=== PATIENT | female | born 1955 | race Caucasian/White ===

== ENCOUNTER → 2024-04-19 17:45 | Outpatient (REF) | payer MEDICARE, OTHER, SELFPAY | LOC: RAD 17:45 | PROVIDERS: ATTENDING PHYSICIAN Nurse Practitioner Family; FAMILY PHYSICIAN Family Medicine | DX: M79.675 Pain in left toe(s) (principal); M79.672 Pain in left foot | CPT/HCPCS: 73630; 73660 ==

== ENCOUNTER 2024-10-30 11:44 | Inpatient (IN) | payer MEDICARE, OTHER, SELFPAY ==
[2024-10-30] VITALS (13 sets, daily range): BP systolic 79–117; BP diastolic 49–81; BMI 18.0
--- NOTE | 2024-10-30 10:25 | ED.GENMED ---
History of Present Illness
General
Chief Complaint: Chest Pain
Time Seen by Provider: 10/30/24 10:25
History of Present Illness
History of Present Illness:
TIME OF INITIAL ENCOUNTER: 10:20 AM
HPI: The patient presents due to chest pressure that started last night. The symptoms have been constant since last night. She denies any history of coronary artery disease. She has never been to a court commissioner. She said that she started feeling
sick to her stomach. She took some Pepto-Bismol this morning. Former smoker.
EXAM:
GENERAL: Well appearing in no distress
HEENT: Moist oral mucosa
CARDIOVASCULAR: No murmurs, normal heart rate, regular rhythm, No chest wall tenderness
PULMONARY: No respiratory distress, breath sounds are clear and equal
ABDOMEN: Soft with no peritoneal signs, no tenderness
NEUROLOGIC: Excellent strength all extremities, no coordination deficits
PSYCHIATRIC: Appropriate mental status, normal insight and judgement
EXTREMITIES: Nontender, no edema, moves all extremities equally
SKIN: No rash, no lesions
NUMBER AND COMPLEXITY OF PROBLEMS ADDRESSED AT THE ENCOUNTER
� Chronic conditions affecting care: Asthma, former smoker, diverticular disease
� Acute Exacerbation and/or Progression of Chronic Illness: This is an acute problem
� Differential Diagnosis includes: STEMI, ACS, reactive airway disease unlikely
AMOUNT AND/OR COMPLEXITY OF DATA TO BE REVIEWED AND ANALYZED
� I performed an independent evaluation of and my interpretation is:
EKG: Initial EKG shows a sinus rhythm but inferior ST elevation with associated Q wave.
CT:
X-rays:
Laboratory Studies: White count 12.0, hemoglobin normal, chemistries are unremarkable, however the troponin is 4.08
Other:
� Review of other/old records: I reviewed records, the patient went to the OR in 2021 related to cholelithiasis
� Clinical information was obtained by an independent historian: None needed
� Prescriptions/Medications Considered but not given:
� Further testing considered but not performed:
RISK OF COMPLICATIONS AND/OR MORBIDITY OR MORTALITY OF PATIENT MANAGEMENT
� Social determinants of health affecting care: Lives at home
� Discussion with other providers: I spoke to Dr. Chatman immediately after my evaluation of the EKG. STEMI alert had been called at around 10:[address] Chatman arrived shortly thereafter.
� Escalation of care including admission/observation vs risk of discharge considered:
ANY OTHER UPDATES:
After initial evaluation by EKG that showed STEMI inferiorly, she was seen immediately upon arrival in the room and Dr. Chatman took to the Attraction Attendant. Aspirin/Brilinta started. She was inconsistent if she was still having chest discomfort or not.
Past History
Past History
ED Past Medical History: None
ED Past Surgical History: None
Phy Exam
Physical Exam
Physical Exam:
See HPI
Scores
Heart Score for Chest Pain Patients
STEMI patient?: Yes
Sepsis
Sepsis Screening
Sepsis Assessment: Sepsis Ruled Out
Sepsis Screen
Sepsis Screen: Sepsis Ruled Out
Date: 10/30/24
Time: 12:45
Course
Orders/Labs/Results
Orders:
Orders
10/30/24 Lunch
Cholesterol Lowering
At Your Request: Full Participation
Does patient need a safe tray?: No
Cholesterol Lowering: Sodium, 2 Gram
10/30/24 10:13
Electrocardiogram (*1) Urgent
Reason for Study: Chest Pain
EKG- Treatment ONCE
10/30/24 10:29
Complete Blood Count/With Diff Urgent
Comprehensive Metabolic Panel Urgent
Magnesium Urgent
NT-proBNP Urgent
Troponin I Urgent
10/30/24 10:38
Ticagrelor [Brilinta] 180 mg .ROUTE .STK-MED ONE
10/30/24 10:39
Aspirin Chewable [Low Strength Aspirin] 324 mg .ROUTE .STK-MED ONE
Heparin 5,000 units .ROUTE .STK-MED ONE
10/30/24 11:05
Ondansetron Injectable [Zofran] 4 mg .ROUTE .STK-MED ONE
10/30/24 11:09
Admit Patient As Directed
Co-Sign Provider:
Level of Care: Inpatient admission
Assign to:: IVU
Physician / Group: michael/lurdes
Diagnosis: Inferior STEMI
Reason for Hospitalization: Acute inf stemi, s/p rca pci
Expected length of stay greater than two midnights?: Yes
ELOS- Estimated Length of Stay in days: 2
I certify the patient meets the requirements for IP care: Yes
Electrocardiogram (*1) Urgent
Reason for Study: Other
Other Reason for Exam: s/p intervention
Comment: dca
Code Status As Directed
Resuscitation Status: Full Code
CARDIAC REHAB CONSULT Routine
Co-Sign Provider:
Cardiac Rehab & Exercise Evaluation Referral
Type of Cardiac Rehab Referral: Outpatient
Diagnosis: STEMI
Date of Diagnosis/Surgery: 10/30/24
Referring Provider: Socorro Chatman
[facility] Intensive Cardiac Rehab Exercise Prescription
The above named person is capable of participating in an intensive cardiac rehab exercise therapy program
under the guidance of the [facility] cardiac rehab staff, outpatient registered dieticians and
supervision of a physician.
ICR Program Objectives:
Provide supervised exercise, cooking classes, nutritional counseling and healthy mind-set education to
improve the function/symptom free work capacity to an optimal level as well as control risk factors to
prevent the progression of heart disease. During the supervised exercise therapy session some or all of
the following may be included in the cardiac rehab session: ECG telemetry, BP, heart rate, rate of
perceived exertion, symptoms/tolerance, cholesterol testing and education. Exercise modalities may
include: treadmill, upright or recumbent bike, spin bike, rowing machine, elliptical, recumbent
elliptical, arm-bike machine, recumbent stepper and free weights.
Intensity:
All CR staff will use ACSM guidelines: Most patients will exercise in the following range: Heart Rate
Maxie range of 40% to 80% & Oxygen Uptake reserve range 40-80% (VO2R). Peak heart rate and VO2 are
derived from the cardiac rehab submaximal graded exercise test at RPE of 13/14 out of 20. Initial
intensity range: RPE 11 to 14/20 and may expand to 11 to 16/20.
Duration & Frequency:
If appropriate the patient will be progressed up to 40 minutes of exercise therapy. Patients will be
instructed to come three times a week in cardiac rehab and at a home/other gym to achieve optimal
physical activity/exercies i.e. 4000-10,000 steps per day.
Education:
The patient will receive one-on-one education during their orientation, initial exercise evaluation, ITP
reassessments and discharge session. Each exercise session will also include an education class (30-40
minutes).
Activity As Directed
Activity Level: Out of Bed- Chair
Comment: bed/chair rest for 2 hours then out of bed ad rakesh
Attraction Attendant Procedure As Directed
Cardiac Cath Procedure: percutaneous coronary intervention
Intake/ Output As Directed
Frequency: Per unit guidelines
Notify MD As Directed
Notify physician if: immediately for chest pain or bleeding from access site(s)
Radial Artery Hemostasis Method As Directed
Instructions:: 3 mL out at 2 hour posts placement of band
3 mL out at 2 1/2 hours post placement of band
3 mL out at 3 hours post placement of band
Off at 3 1/2 hours post placement of band
If any oozing or hemotoma occurs:: re-inflate band and call provider
Site Checks As Directed
Check access site for bleeding/hematoma: Yes
Comment: on arrival, Q15min x4, Q30min x2, Q1 hr x2, Q2 hr x2, Q4 hr or per
protocol
Vascular Checks As Directed
Location: distal to access site - pulse check
Frequency: Other
Comment: on arrival, Q15min x4, Q30min x2, Q1 hr x2, Q2 hr x2, Q4 hr or per protocol
Vital Signs As Directed
Frequency: Other
Additional Instructions:: on arrival, Q15min x4, Q30min x2, Q1 hr x2, Q2 hr x2, then Q4 hr or per unit
protocol
PRN Pain Medication Management As Directed
May give lesser potent ordered pain med per pt: Yes
preference::
Protocol:: Medication orders for pain may be administered in a
manner that supports deferring to patient preference
when the pt is:
- Requesting an ordered lesser potent pain medication.
Least to most potent pain medications are defined
as: acetaminophen < NSAID < tramadol < opioids
(morphine, oxycodone, hydromorphone).
- Requesting a lesser dose of the same medication IF
ORDERED.
- Requesting a less intrusive route of administration
if both routes are prescribed by the provider (PO <
IV).
10/30/24 11:10
DX Deep Vein Thrombosis Video Routine
10/30/24 11:20
Acetaminophen [Tylenol] 650 mg PO Q4HPRN PRN
10/30/24 11:25
Phenylephrine HCl/0.9% NaCl [Erick-Synephrine] 1,000 mcg .ROUTE .STK-MED ONE
10/30/24 11:30
0.9% Sodium Chloride 1000 ml [Nss] 1,000 ml IV PER PROTOCOL
Infusion rate in mL/kg/hr:: 1.5
Infusion rate in mL/hr:: 69
Duration of infusion (hours):: 5
10/30/24 16:00
Troponin I Q6H
10/30/24 18:00
Atorvastatin [Lipitor] 80 mg PO QPM
10/30/24 20:00
Ticagrelor [Brilinta] 90 mg PO BID
10/30/24 22:00
Troponin I Q6H
10/31/24 04:00
Troponin I Q6H
10/31/24 06:00
Electrocardiogram (*1) IN AM
Reason for Study: Other
Other Reason for Exam: s/p intervention
Comment: dca
Basic Metabolic Panel IN AM
Cardiovascular Evaluation IN AM
Complete Blood Count/No Diff IN AM
10/31/24 08:00
Aspirin Chewable [Low Strength Aspirin] 81 mg PO DAILY
Pantoprazole [Protonix] 40 mg PO DAILY
10/31/24 18:00
Enoxaparin Sodium [Lovenox] 30 mg SC QPM
11/01/24 06:00
Basic Metabolic Panel IN AM
Complete Blood Count/No Diff IN AM
Abnormal Lab Results
10/30/24 10/30/24 10/30/24
10:29 10:53 11:00
WBC 12.0 H 10^3/uL
(4.8-10.8)
MCHC 32.9 L g/dL
(33.0-37.0)
Abs Immat Gran (auto) 0.1 H 10^3/uL
(0-0.05)
Absolute Neuts (auto) 9.0 H 10^3/uL
(1.4-6.5)
Absolute Monos (auto) 0.9 H 10^3/uL
(0.1-0.6)
Lymphocytes % 16.0 L %
(20.5-51.1)
Chloride 108 H mmol/L
(98-107)
BUN 19 H mg/dl
(7-17)
Glucose 127 H mg/dl
(70-99)
AST 56 H U/L
(14-36)
Troponin I 4.080 H* ng/ml
POC ACT Low Range 211 H Seconds 232 H Seconds
(116-155) (116-155)
10/30/24 10/30/24
11:10 11:29
WBC
MCHC
Abs Immat Gran (auto)
Absolute Neuts (auto)
Absolute Monos (auto)
Lymphocytes %
Chloride
BUN
Glucose
AST
Troponin I
POC ACT Low Range 321 H Seconds 269 H Seconds
(116-155) (116-155)
10/30/24 10:29
10/30/24 10:29
Vital Signs
Initial and Last Documented VS:
Initial Vital Signs
Pulse Resp BP Pulse Ox
87 18 115/75 96
10/30/24 10:21 10/30/24 10:21 10/30/24 10:21 10/30/24 10:21
Last Documented Vital Signs
Pulse Resp BP Pulse Ox
82 16 106/72 98
10/30/24 12:30 10/30/24 12:13 10/30/24 12:30 10/30/24 12:30
*Critical Care Note
Total Time (30-74mins, 75-104mins- exclusive of procedures): Not Applicable
ED Attending Note
-
Portions of this chart may have been created with voice recognition software.� Occasional wrong word or��sound alike� substitutions may have occurred due to the inherent limitations of voice recognition software.
Discharge Plan
Departure
Patient Disposition: Admit
Date of Disposition: 10/30/24
Time of Disposition: 10:29
Presentation/result/management discussed w/ accepting MD/DO: dr chatman
Discharge Problem:
ST elevation (STEMI) myocardial infarction
Interventions
Interventions:
*Risk Screen - Suicide Last Done: 10/30/24 10:21
*General Assessment Last Done: 10/30/24 10:21
*Neglect/Abuse Screening Last Done: 10/30/24 10:21
*ED- Fall Risk Assessment Last Done: 10/30/24 10:21
*Nursing Disposition Last Done: 10/30/24 11:03
ED- Cardiac Assessment Last Done: 10/30/24 10:21
Discharge Date and Time
Discharge Date/Time: 10/30/24 10:35
--- NOTE | 2024-10-30 10:35 | HPS.HSE ---
Family Physician
-
Family Physician: Silverio Chadwick, DO
Chief Complaint
-
Chest pain
History of Present Illness
69 y/o, PMH mild asthma, diverticulosis, IBS, former tobacco, no FH CAD/HI.
Presents with 1 week history of nausea/dyspepsia with some vomiting, then developed new onset chest pain/epigastric pain last night that was constant and unremitting, no radiation or associated symptoms. This morning, she developed more nausea and
took some pepto bismol with no relief. Drove to ER, initial EKG with inferior ST elevations. Loaded with aspirin, ticagrelor and heparin, brought urgently to lab coordinator.
Medical History
Past Medical History
Past Medical History: Reports Asthma
Additional Past Medical History:
Diverticulosis, IBS
Past Surgical History: Reports Cholecystectomy
Social History
Tobacco: Former Smoker
Alcohol: None
Drug: None
Personal:
Living: With Family
Family History
Family History: Cancer
Allergies / Home Medications
Allergies reflects when Allergies were last updated in [employer].
Home Medications with original date entered in [employer]
Allergy/Medication List:
Allergies
Allergy/AdvReac Type Severity Reaction Status Date / Time
erythromycin base Allergy Unknown Verified 10/30/24 10:41
peanut (Peanut) Allergy NAUSEA Verified 06/13/21 11:59
Review of Systems
-
Unable to obtain full review of systems at this time due to: Acuity
Physical Exam
Vital Signs
Vital Signs
Pulse Resp BP Pulse Ox
87 18 115/75 96
10/30/24 10:21 10/30/24 10:21 10/30/24 10:21 10/30/24 10:21
Physical Exam
General: Well Developed and Other (PE deferred d/t urgent nature of HI)
Data Reviewed
-
Medical Tests (Nuc Med, Echo, EKG etc): Image Personally Visualized and interpreted and Report Reviewed by me
Lab Data: Labs Reviewed by me and Discussed with Physician
Old Records: Reviewed
Impression/Plan
-
PCP: Silverio Chadwick, DO
CDY: None prior to admission, to follow with Socorro Barrera MD
69 y/o, PMH mild asthma, diverticulosis, IBS, former tobacco, no FH CAD/HI.
Presents with 1 week history of nausea/dyspepsia with some vomiting, then developed new onset chest pain/epigastric pain last night that was constant and unremitting, no radiation or associated symptoms. This morning, she developed more nausea and
took some pepto bismol with no relief. Drove to ER, initial EKG with inferior ST elevations. Loaded with aspirin, ticagrelor and heparin, brought urgently to lab coordinator. 1st troponin 4.08.
C- Prox RCA angioplasty and SARITA x1
IMPRESSION:
Late Presentation Inferior STEMI
s/p RCA PCI
Mild Asthma
Diverticulosis/IBS
PLAN:
Inferior STEMI
this is a threat to life
C- s/p RCA PCI
DAPT w/asa, ticagrelor- cm to check cost
first troponin 4.08, trend to peak
echo today
Soft BPs- will hold on chelsi/arb, BB for now
check lipid profile in AM, start high intensity statin therapy w/atorvastatin 80/d
cardiac rehab
followup at [facility]
Mild asthma- inhalers, albuterol as needed
monitor with addition of beta sherrie in time
Diverticulosis/IBS- PPI
[2024-10-30 10:43] LABS: % Basophils 0.5 % (0-2); % Eosinophils 0.5 % (0-6); % Immature Granulocytes 0.4 % (0-0.5); % Monocytes 7.9 % (1.7-9.3); % Neutrophils 74.7 % (42.2-75.2); Absolute Basophils 0.1 10^3/uL (0-0.2); Absolute Eosinophils 0.1 10^3/uL (0-0.7); Absolute Immature Granulocytes 0.1 10^3/uL (0-0.05); Absolute Lymphocytes 1.9 10^3/uL (1.2-3.4); Absolute Monocytes 0.9 10^3/uL (0.1-0.6); Hematocrit 41.4 % (37.0-47.0); Hemoglobin 13.6 g/dL (12.0-16.0); Mean Corp Hgb Conc. 32.9 g/dL (33.0-37.0); Mean Corpuscular Hgb 30.5 pg (27.0-31.0); Mean Corpuscular Volume 92.8 fL (81.0-99.0); Mean Platelet Volume 9.4 fL (7.4-10.4); Nucleated Red Blood Cells % 0 %; Platelet Count 274 10^3/uL (130-400); Red Blood Cell Count 4.46 10^6/uL (4.20-5.40); Red Cell Dist. Width 12.7 % (11.5-14.5)
[2024-10-30 10:58] LABS: ACT-LR - POC 211 Seconds (116-155)
--- NOTE | 2024-10-30 11:00 | EDRN ---
Patient with c/o upper abdominal/lower chest pressure that started last night when she went to bed. Patient denies SOB/nausea/vomiting/diaphoresis. Report given to component lab tech RN. Patient taken directly to component lab tech. See ACS sheet for medications given.
[2024-10-30 11:07] LABS: ACT-LR - POC 232 Seconds (116-155)
[2024-10-30 11:09] LABS: ALT (SGPT) 22 U/L (0-35); AST (SGOT) 56 U/L (14-36); Alkaline Phosphatase 116 U/L (38-126); Blood Urea Nitrogen 19 mg/dl (7-17); Calcium 9.3 mg/dl (8.4-10.2); Carbon Dioxide 27 mmol/L (22-30); Chloride 108 mmol/L (98-107); Estimated Creatinine Clearance 47 ml/min; Glucose 127 mg/dl (70-99); Magnesium 1.9 mg/dl (1.6-2.3); Potassium 4.9 mmol/L (3.5-5.1); Sodium 140 mmol/L (135-145); Total Bilirubin 0.7 mg/dl (0.2-1.3); Total Protein 6.7 g/dl (6.3-8.2); eGFR > 60.00
[2024-10-30 11:17] LABS: ACT-LR - POC 321 Seconds (116-155)
[2024-10-30 11:26] LABS: NT-proBNP 684 pg/ml
[2024-10-30 11:34] LABS: ACT-LR - POC 269 Seconds (116-155)
--- NOTE | 2024-10-30 11:48 | ITS.CL.CATH ---
Industrial Methods Consultant - Catheterization
Cardiac Catheterization
Procedure Report:
LEFT HEART CATHETERIZATION AND CORONARY INTERVENTION
Date of Procedure: October 30, 2024
Referring: [facility] emergency department
PROCEDURES:
1. Left heart catheterization, coronary angiogram.
2. Moderate sedation.
3. Successful percutaneous coronary artery intervention of a 90% proximal RCA stenosis (lesion type C, STEPH I flow) with one 2.5 x 18 mm Medtronic Pedro drug-eluting stent, postdilated with a 2.5 x 12 mm NC balloon at 18 kyleigh with an excellent
angiographic result and STEPH-3 flow restored into the distal vessel.
INDICATION: Kaylie is a 69-year-old female with past medical history of mild persistent asthma on multiple inhalers at home, former smoker, quit about 15 years ago, diverticulosis, IBS with diarrhea over the last week who presents with sudden onset
substernal chest discomfort starting last night, at worst 8 out of 10 where she eventually was able to fall asleep around 4 AM and woke up to generally not feeling well with ongoing chest discomfort and therefore decided to come in. Yesterday she
tells me her chest discomfort radiated to her right arm but no radiation of discomfort this morning. Her discomfort this morning was about 3 out of 10 and persistent. She received 325 mg of aspirin, 180 mg of Brilinta and 3000 units of IV
unfractionated heparin and in the setting of inferior ST elevations on EKG she was emergently brought up to the heart catheterization lab after detailed informed consent reviewing the risk and benefits.
ACCESS: Right radial artery, 6Fr. sheath, under US guidance.
HEMODYNAMICS : (mmHg)
AO (s/d) : 112/72
LVEDP : 20
No significant gradient across the aortic valve to suggest aortic stenosis.
CORONARY FINDINGS
Dominance: Right
Left Main Trunk (LMT): Large caliber vessel that gives rise to the LAD and LCx branches and is free of angiographic disease.
Left Anterior Descending Artery (LAD): Large caliber vessel that gives off 1 major diagonal branch as it courses along the anterior inter-ventricular groove before wrapping around the cardiac apex. The LAD and its branches are free of angiographic
disease.
Left Circumflex Artery (LCx): Large caliber vessel that gives off 3 major obtuse marginal (OM) branches as it courses along the atrio-ventricular (AV) groove. The LCx and its branches are free of angiographic disease.
Right Coronary Artery (RCA): Medium caliber dominant vessel that gives rise to the posterior descending artery (RPDA) and postero-lateral ventricular (RPLV) branches distally. There is a 90% proximal RCA stenosis (lesion type C, STEPH I flow) which
is thought to be the culprit for presenting ST elevation AK and was intervened upon as noted below. The ostial to mid RPDA is diffusely diseased at 60 to 70%. The larger RPL has a proximal to mid 70% stenosis. There is no good target for PCI as
the distal vessels are less than 2 mm in size.
CORONARY INTERVENTION: The right coronary artery was selectively engaged using a 6 Nepali JR4 guide. Additional heparin was given to maintain a therapeutic ACT throughout the case. A 190 cm 0.014 run-through wire was carefully navigated across the
lesion into the distal RCA. The lesion was predilated using a 2.0 x 12 mm semicompliant balloon with good expansion. The lesion was subsequently stented using a 2.5 x 18 mm Medtronic [place] drug-eluting stent, postdilated using a 2.5 x 12 mm NC
balloon at 18 kyleigh with an excellent angiographic result and STEPH-3 flow restored into the distal vessel. The patient was chest pain free at the end of the case. She had been loaded with 180 mg of Brilinta in the ED. She tolerated the procedure
well with no acute complications.
SEDATION: 67 minutes of procedural sedation was utilized. IV Midazolam and IV Fentanyl were administered. An independent emergency medical dispatcher was present to assist with and help manage the patient's level of consciousness and physiologic status.
RADIATION SUMMARY: Fluoro Time (min): 9.4, Dose (mGy): 129.8, DAP (Gy.cm2) : 8.02
Closure Device: There were no immediate intra-procedural complications. The sheath was pulled in the wood preserving plant laborer and a vascular-band applied to the right wrist for radial artery hemostasis using the patent hemostasis technique.
CONCLUSIONS
1. Successful percutaneous coronary artery intervention of a 90% proximal RCA stenosis (lesion type C, STEPH I flow) with one 2.5 x 18 mm Medtronic [place] drug-eluting stent, postdilated with a 2.5 x 12 mm NC balloon at 18 kyleigh with an excellent
angiographic result and STEPH-3 flow restored into the distal vessel.
2. Elevated LVEDP at 20 mmHg.
3. The ostial to mid RPDA is diffusely diseased at 60 to 70%. The larger RPL has a proximal to mid 70% stenosis. There is no good target for PCI as the distal vessels are less than 2 mm in size.
RECOMMENDATIONS
1. Wean radial band per protocol. Monitor right hand perfusion and for bleeding from the radial site following removal of the vascular-band following trans-radial access.
2. Continue aggressive medical therapy and risk factor modification for secondary CAD prevention.
3. Continue ASA 81 mg daily for life.
4. Continue Brilinta for at least 12 months of uninterrupted dual anti-platelet therapy given drug-eluting stent (SARITA) implantation to mitigate the risk of stent thrombosis. This is not to be stopped for any reason without the guidance of a
leather seasoner.
5. Hydrate with normal saline to mitigate the risk of contrast-induced acute kidney injury.
6. Full echocardiogram to assess biventricular function and rule out any significant valvular abnormalities.
7. Referral for outpatient cardiac rehab.
Copy to: Socorro Barrera MD, FAC, [facility]
--- NOTE | 2024-10-30 12:34 | PTCARENOTE ---
Rec'd pt post cath. Tele- SR 70-80s. BP 106/72. R wrist w/ x2 external hemostasis bands. No bleeding/hematoma noted. Hand dusky in color sating 100%. Herminia Valentin VICE PRESIDENT OF SOFTWARE ENGINEERING at bedside and ok to take 2 cc air out of top hemostasis band. See worklist. Pt w/
slight nausea at this time and Barbie VICE PRESIDENT OF SOFTWARE ENGINEERING made aware and orders placed for Maalox. See MAR. No CP/discomfort at this time. Family at bedside. Oriented pt to room. Call tate is w/in reach.
[2024-10-30] MEDS: NSS 1000 IV (13:30)
--- NOTE | 2024-10-30 14:15 | CM ---
Chart reviewed. Patient is independent of ADLS, lives with her , son, DIL and 3 grandchildren in a 2 STH, 2 OLVIN, 0 DME. Plan is for the patient to return home. CM to follow
--- NOTE | 2024-10-30 14:16 | CM ---
Pricing on Brilinta is $847. Patient has a $972 deductible to meet before she enters into the catastrophic stage which will bring her to $0. Patient said she can't afford this. I notified Dori Valentin.
[2024-10-30] MEDS: LIPITOR 80 MG PO (18:13)
--- NOTE | 2024-10-30 19:15 | PTCARENOTE ---
Received pt at change of shift resting in bed, family at bedside. NSR on the monitor, HR in the 80's. Pt denies any chest pain or SOB. Right radial site C,D,I. Site is ecchymotic with red petechiae. No hematoma or bleeding noted at this time. Arm
elevated on a pillow. Positive pulses. pt educated on activity restrictions and instructed to call if bleeding or swelling occurs. Call tate within reach.
[2024-10-30] MEDS: BRILINTA 90 MG PO (20:10)
[2024-10-30] MEDS: FLUSH (NSS) 1 FLUSH IV (20:10)
[2024-10-31] VITALS (7 sets, daily range): BP systolic 99–117; BP diastolic 58–80
--- NOTE | 2024-10-31 04:39 | PTCARENOTE ---
Right radial site C,D,I. Ecchymotic but soft with petechiae noted on right hand. AM labs and EKG completed. Pt voices no complaints.
[2024-10-31 04:55] LABS: Hematocrit 33.2 % (37.0-47.0); Hemoglobin 11.1 g/dL (12.0-16.0); Mean Corp Hgb Conc. 33.4 g/dL (33.0-37.0); Mean Corpuscular Volume 92.7 fL (81.0-99.0); Mean Platelet Volume 9.4 fL (7.4-10.4); Platelet Count 207 10^3/uL (130-400); Red Blood Cell Count 3.58 10^6/uL (4.20-5.40); Red Cell Dist. Width 12.7 % (11.5-14.5); White Blood Cell Count 8.1 10^3/uL (4.8-10.8)
[2024-10-31 05:11] LABS: Blood Urea Nitrogen 17 mg/dl (7-17); Calcium 8.6 mg/dl (8.4-10.2); Carbon Dioxide 25 mmol/L (22-30); Chloride 112 mmol/L (98-107); Estimated Creatinine Clearance 47 ml/min; Glucose 105 mg/dl (70-99); HDL Cholesterol 34 mg/dl; LDL Cholesterol, Calculated 68 mg/dl; Potassium 4.2 mmol/L (3.5-5.1); Sodium 138 mmol/L (135-145); Total Cholesterol 121 mg/dl (50-199); Triglyceride 95 mg/dl (10-149); Very Low Density Lipoprotein 19 mg/dl (0-30); eGFR > 60.00
[2024-10-31] MEDS: LOW STRENGTH ASPIRIN 81 MG PO (08:00)
[2024-10-31] MEDS: BRILINTA 90 MG PO (08:00)
[2024-10-31] MEDS: PROTONIX 40 MG PO (08:00)
[2024-10-31] MEDS: SYMBICORT 80/4.5 MCG INHALER 2 PUFF INH ×2 (08:06→20:23)
--- NOTE | 2024-10-31 09:23 | SUR.PHASEI ---
Rec'd pt at handoff. Tele- SR. Assessment completed as documented. R radial site is ecchymotic but soft with petechiae noted on right hand. Activity restrictions reviewed w/ pt and verbalizes understanding. Pt has no c/o CP/discomfort/SOB at this
time. Currently in bed; call bebeto w/in reach.
--- NOTE | 2024-10-31 09:37 | W.PN.CARDCBS ---
Addendum entered and electronically signed by DAVID Marlow 10/31/24 14:22:
ADDENDUM: BMI<19, with associated dx of underweight. This is likely baseline for this patient, as her height/weight is only 5'3'/101lbs.
Addendum entered and electronically signed by Trung Barrera MD 10/31/24 12:48:
I saw and examined the patient.
The Log Buncher's note was reviewed and I agree with the note.
Comment: Briefly, 69-year-old woman who presented with approximately 1 week of epigastric discomfort and nausea. Initial ECG showed inferior injury pattern. She was taken emergently for left heart catheterization and found to have 90% proximal RCA
stenosis treated with one drug-eluting stent. Overall presentation seems most consistent with delayed presentation of inferior ST elevation DE.
Patient was resting comfortably this morning at time of my evaluation and tells me that symptoms resolved following PCI
Maintaining sinus rhythm on telemetry
No evidence of decompensated heart failure based on physical exam
Preserved LV function by echo
Dual antiplatelet therapy x 12 months, patient is concerned that Brilinta will be cost prohibitive, plan for aspirin/Plavix
Low-dose metoprolol
High intensity statin
Cardiac rehab referral
Original Note:
Today's Communication / Plan
-
oob ambulate
cardiac rehab
change ticagrelor to clopidogrel in AM
anticipate d/c in next 24 hours
Impression / Plan
-
PCP: Silverio Chadwick, DO
CDY: None prior to admission, to follow with Socorro Barrera MD
69 y/o, PMH mild asthma, diverticulosis, IBS, former tobacco, no FH CAD/DE.
Presents with 1 week history of nausea/dyspepsia with some vomiting, then developed new onset chest pain/epigastric pain last night that was constant and unremitting, no radiation or associated symptoms. This morning, she developed more nausea and
took some pepto bismol with no relief. Drove to ER, initial EKG with inferior ST elevations. Loaded with aspirin, ticagrelor and heparin, brought urgently to microbiology lab analyst. 1st troponin 4.08.
C 10/30- Prox RCA angioplasty and SARITA x1
Echo 10/30- small LV size, mild CLVH, nml LVSF, EF 68%, mild septal flattening noted
no sig valvular disease, trivial pericardial effusion
IMPRESSION:
Late Presentation Inferior STEMI
s/p RCA PCI
Mild Asthma
Diverticulosis/IBS
PLAN:
Inferior STEMI
this is a threat to life
[facility]- s/p RCA PCI
DAPT w/asa, ticagrelor- cost prohibitive and will switch to clopidogrel with 600mg load in AM
peak troponin 59.8
tele- NSR w/PAC, 8bt NSVT
echo results noted- preserved EF with mild CLVH
Soft BPs- continue to be low 100s, HR 80s- will start metoprolol xl 12.5/d and monitor- revisit chelsi/arb at outpt followup
lipid profile noted and started on high intensity statin therapy w/atorvastatin 80/d
radial cath site with 2 bands yesterday for swelling- now stable but with ecchymosis/palpable pulses
cardiac rehab consult today
oob ambulate today and monitor tele
importance of medications and compliance stressed with patient
followup at [facility] at d/c
Mild asthma- inhalers, albuterol as needed
monitor with addition of beta sherrie in time
Diverticulosis/IBS- PPI
Progress Note - Mail Technician
Subjective
Date of Service: October 31, 2024
Denies cp/palps/dyspnea
cath site without pain
oob ambulating
Objective
Labs:
10/31/24 04:24
10/31/24 04:24
Labs
Hgb 11.1 g/dL (12.0-16.0) L 10/31/24 04:24
Hct 33.2 % (37.0-47.0) L 10/31/24 04:24
Plt Count 207 10^3/uL (130-400) D 10/31/24 04:24
Sodium 138 mmol/L (135-145) 10/31/24 04:24
Potassium 4.2 mmol/L (3.5-5.1) 10/31/24 04:24
BUN 17 mg/dl (7-17) 10/31/24 04:24
Creatinine 0.8 mg/dL (0.6-1.0) 10/31/24 04:24
Glucose 105 mg/dl (70-99) H 10/31/24 04:24
Troponins
10/30/24 10/30/24 10/30/24
10: 16:56 22:05
Troponin I 4.080 H* 44.700 H* D 59.800 H* D
10/31/24 10/31/24
04:24 04:40
Troponin I 47.200 H* Cancelled
Vital Signs and I&O:
Vital Signs
Temp Pulse Resp BP Pulse Ox
98.2 F 75 16 102/58 94
10/31/24 08:19 10/31/24 08:19 10/31/24 08:23 10/31/24 07:07 10/31/24 08:23
Vital Signs
Temp Pulse Resp BP Pulse Ox
98.2 F 75 16 102/58 94
10/31/24 08:19 10/31/24 08:19 10/31/24 08:23 10/31/24 07:07 10/31/24 08:23
Intake & Output
10/29/24 10/30/24 10/31/24 11/01/24
06:59 06:59 06:59 06:59
Intake Total 785 / 785 120 / 120
Balance 785 / 785 120 / 120
Physical Exam
Physical Exam
AAOx3, MAEE 09/25
RRR S1 S2 no murmurs
CTA bilat, non labored
soft abd, + bs
right radial cath site with ecchymosis to wrist and hand but non tender, no ht/bleeding, palpable pulse
bilat extremities w/palpable distal pulses, no edema
--- NOTE | 2024-10-31 10:20 | CM ---
Chart reviewed. Patient independent of ADLS, lives with her , son DIL and 3 grandchildren in a 2 [address], 2 OLVIN, 0 DME. Plan is for the patient to return home with CT Transitional RN. CM to follow
[2024-10-31] MEDS: TOPROL XL 12.5 MG PO (10:44)
--- NOTE | 2024-10-31 12:13 | PN.CDI ---
CDI
- -
CDI:
Physician Documentation Request
Admit Date: 10/30/24 11:44
Dear Cardiology,
Please review the following and provide your response in the progress notes.
Clinical Indicators:
Height: 5'3
Weight: 101 lbs
BMI: 18.0
Other Clinical Notes:
If possible, please provide an associated diagnosis related to the abnormal BMI, such as:
BMI < or = to 19
- Underweight
- Cachectic
- Anorexia
- Other (please specify)
Use of terms such as suspected, likely, concern for, or probable (associated with a specific diagnosis that is being evaluated, monitored, or treated as if it exists) are acceptable and can be coded in the inpatient setting, when documented at the
time of discharge.
Thank you,
Geovany Paz RN
CDI Specialist
Please use your independent medical judgment in providing your response.
[2024-10-31] MEDS: LOVENOX 30 MG SC (17:07)
[2024-10-31] MEDS: LIPITOR 80 MG PO (17:07)
[2024-11-01 04:23] VITALS: BP 129/70
[2024-11-01 05:04] LABS: Hematocrit 33.2 % (37.0-47.0); Hemoglobin 11.1 g/dL (12.0-16.0); Mean Corp Hgb Conc. 33.4 g/dL (33.0-37.0); Mean Corpuscular Hgb 30.7 pg (27.0-31.0); Mean Platelet Volume 9.9 fL (7.4-10.4); Platelet Count 218 10^3/uL (130-400); Red Blood Cell Count 3.61 10^6/uL (4.20-5.40); Red Cell Dist. Width 12.6 % (11.5-14.5); White Blood Cell Count 8.1 10^3/uL (4.8-10.8)
[2024-11-01 05:18] LABS: Blood Urea Nitrogen 21 mg/dl (7-17); Calcium 8.8 mg/dl (8.4-10.2); Carbon Dioxide 25 mmol/L (22-30); Chloride 112 mmol/L (98-107); Estimated Creatinine Clearance 47 ml/min; Glucose 95 mg/dl (70-99); Potassium 4.4 mmol/L (3.5-5.1); Sodium 139 mmol/L (135-145); eGFR > 60.00
--- NOTE | 2024-11-01 06:24 | PTCARENOTE ---
Pt sleeping when undisturbed. SR on tele, HR 80s-90s. VSS. OOB as tolerated. Right radial site CDI. Denies c/o CP or SOB.
[2024-11-01 06:52] VITALS: BP 116/72
[2024-11-01] MEDS: SYMBICORT 80/4.5 MCG INHALER 2 PUFF INH (07:48)
[2024-11-01] MEDS: TOPROL XL 12.5 MG PO (08:36)
[2024-11-01] MEDS: PROTONIX 40 MG PO (08:36)
[2024-11-01] MEDS: LOW STRENGTH ASPIRIN 81 MG PO (08:37)
[2024-11-01] MEDS: PLAVIX 600 MG PO (08:38)
--- NOTE | 2024-11-01 09:12 | W.PN.CARDCBS ---
Addendum entered and electronically signed by Trung Barrera MD 11/01/24 10:42:
I saw and examined the patient.
The Review Coordinator's note was reviewed and I agree with the note.
Comment: Briefly, 69-year-old woman who presented for evaluation of epigastric discomfort and nausea which ad been ongoing for approx 1 week. Initial ECG showed inferior injury pattern. She was taken emergently for left heart catheterization and
found to have 90% proximal RCA stenosis treated with one drug-eluting stent. Overall presentation seems most consistent with delayed presentation of inferior ST elevation [place].
Patient was resting comfortably this morning at time of my evaluation and tells me that symptoms resolved following PCI
Maintaining sinus rhythm on telemetry
No evidence of decompensated heart failure based on physical exam
Preserved LV function by echo
Dual antiplatelet therapy x 12 months, patient is concerned that Brilinta will be cost prohibitive, plan for aspirin/Plavix
Low-dose metoprolol
High intensity statin
Cardiac rehab referral
Stable for discharge
Original Note:
Today's Communication / Plan
-
importance of med compliance stressed especially w/DAPT
cardiac rehab
followup at [facility]
home today
Impression / Plan
-
PCP: Silverio Chadwick,
CDY: None prior to admission, to follow with Socorro Barrera MD
69 y/o, PMH mild asthma, diverticulosis, IBS, former tobacco, no FH CAD/HI.
Presents with 1 week history of nausea/dyspepsia with some vomiting, then developed new onset chest pain/epigastric pain last night that was constant and unremitting, no radiation or associated symptoms. This morning, she developed more nausea and
took some pepto bismol with no relief. Drove to ER, initial EKG with inferior ST elevations. Loaded with aspirin, ticagrelor and heparin, brought urgently to labor union business representative. 1st troponin 4.08.
[facility] 10/30- Prox RCA angioplasty and SARITA x1
Echo 10/30- small LV size, mild CLVH, nml LVSF, EF 68%, mild septal flattening noted
no sig valvular disease, trivial pericardial effusion
IMPRESSION:
Late Presentation Inferior STEMI
s/p RCA PCI
Mild Asthma
Diverticulosis/IBS
BMI<19, associated dx: underweight
PLAN:
Inferior STEMI
this is a threat to life
[facility]- s/p RCA PCI
DAPT w/asa, plavix- loaded w/600mg this AM, 75mg daily
peak troponin 59.8
tele- NSR 80s, no further VT/arrhythmia noted
echo results noted- preserved EF with mild CLVH
BP improved 110s- tolerating low dose metoprolol xl 12.5/d, revisit chelsi/arb at outpt followup
lipid profile noted and started on high intensity statin therapy w/atorvastatin 80/d
radial cath site stable w/palpable pulses and ecchymosis as before
cardiac rehab consult
importance of medications and compliance stressed with patient
followup at [facility] at d/c
Mild asthma- inhalers, albuterol as needed
monitor with addition of beta sherrie in time
Diverticulosis/IBS- PPI
Progress Note - Gas Line Servicer
Subjective
Date of Service: November 01, 2024
Denies cp/palps/dyspnea
oob ambulating
cath site without pain
ready to go home
Objective
Labs:
11/01/24 04:29
11/01/24 04:29
Labs
Hgb 11.1 g/dL (12.0-16.0) L 11/01/24 04:29
Hct 33.2 % (37.0-47.0) L 11/01/24 04:29
Plt Count 218 10^3/uL (130-400) 11/01/24 04:29
Sodium 139 mmol/L (135-145) 11/01/24 04:29
Potassium 4.4 mmol/L (3.5-5.1) 11/01/24 04:29
BUN 21 mg/dl (7-17) H 11/01/24 04:29
Creatinine 0.8 mg/dL (0.6-1.0) 11/01/24 04:29
Glucose 95 mg/dl (70-99) 11/01/24 04:29
Troponins
10/30/24 10/30/24 10/30/24
16:56 22:05
Troponin I 4.080 H* 44.700 H* D 59.800 H* D
10/31/24 10/31/24
04: 04:40
Troponin I 47.200 H* Cancelled
Vital Signs and I&O:
Vital Signs
Temp Pulse Resp BP Pulse Ox
98.4 F 85 16 129/70 97
11/01/24 07:00 11/01/24 07:52 11/01/24 07:52 11/01/24 04:23 11/01/24 08:00
Vital Signs
Temp Pulse Resp BP Pulse Ox
98.4 F 85 16 129/70 97
11/01/24 07:00 11/01/24 07:52 11/01/24 07:52 11/01/24 04:23 11/01/24 08:00
Intake & Output
10/30/24 10/31/24 11/01/24 11/02/24
06:59 06:59 06:59 06:59
Intake Total 785 / 785 320 / 320
Balance 785 / 785 320 / 320
Physical Exam
Physical Exam
AAOx3, MAEE 5
RRR S1 S2 no murmurs
CTA bilat, non labored
soft abd, + bs
right radial cath site with ecchymosis noted to arm/hand, site intact without ht/bleeding, palpable pulse
bilat extremities w/palpable distal pulses, no edema
--- NOTE | 2024-11-01 10:04 | W.DS.TRANS ---
DC Summary - Rig Site Engineer
-
Discharge Instructions:
Discharge Diagnosis/Procedures Inferior STEMI, s/p angioplasty and stent to
Right Coronary artery
Diet Low Cholesterol
Other Services Cardiac Rehab
Instructions:
Stand-Alone Forms: DC Instructions- Cath/EP Lab
Changes to Home Medications: Yes
Discharge Medications:
DC Medications w/original date entered in [facility]
albuterol sulfate 90 mcg/actuation aerosol inhaler 2 inh inhalation [id number] PRN shortness of breath 10/30/24
fluticasone furoate 100 mcg-vilanterol 25 mcg/dose inhalation powder (Breo Ellipta) 1 inh inhalation R DAILY Lung/Breathing Issues 10/30/24
multivitamin 1 tab PO DAILY 10/30/24
aspirin 81 mg chewable tablet 81 mg PO DAILY #0 tabs 10/31/24
atorvastatin 80 mg tablet 80 mg PO QPM #30 tabs 10/31/24
clopidogrel 75 mg tablet 75 mg PO DAILY #30 tabs 10/31/24
metoprolol succinate 25 mg tablet,extended release 24 hr 12.5 mg (1/2 x 25 mg) PO DAILY #30 tabs 10/31/24
pantoprazole 40 mg tablet,delayed release 40 mg PO DAILY #30 tabs 10/31/24
Home Medication Changes
NEW' aspirin, atorvastatin, clopidogrel, metoprolol succinate, pantoprazole
Pending Results: No
--- NOTE | 2024-11-01 10:39 | PTCARENOTE ---
Pt received this am with no c/o of any chest pain or sob. Right radial site MARRY, site soft but ecchymotic. OOB ad rakesh in the room, gait steady. Pt discharged to home and driving herself. Discharge instructions given and reviewed with good
understanding and all questions answered.
== END 2024-11-01 10:40 | disposition home or self-care (01) | DRG 322 ==
LOC: IVU 11:44
PROVIDERS: Nurse Practitioner; ADMITTING PHYSICIAN Internal Medicine Interventional Cardiology; EMERGENCY PHYSICIAN Emergency Medicine
PROC: B2111ZZ Fluoroscopy of Multiple Coronary Arteries using Low Osmolar Contrast (ICD-10-PCS; 2024-10-30)
PROC: 027034Z Dilation of Coronary Artery, One Artery with Drug-eluting Intraluminal Device, Percutaneous Approach (ICD-10-PCS; 2024-10-30)
DX: I21.19 ST elevation (STEMI) myocardial infarction involving other coronary artery of inferior wall (principal); Z68.1 Body mass index [BMI] 19.9 or less, adult; Z87.891 Personal history of nicotine dependence; R63.6 Underweight; K58.9 Irritable bowel syndrome, unspecified; K57.30 Diverticulosis of large intestine without perforation or abscess without bleeding; Z79.82 Long term (current) use of aspirin; I25.10 Atherosclerotic heart disease of native coronary artery without angina pectoris; Z79.899 Other long term (current) drug therapy
CPT/HCPCS: 80048; 80053; 80061; 83735; 83880; 84484; 85025; 85027; 85347; 93005; 93306; 93458; 94640; 99152; 99153; 99285; C1725; C1874; C1894; C9606; Q9967